=== PATIENT | female | born 1975 | race Caucasian/White ===

== ENCOUNTER 2018-04-23 10:57 | Outpatient (CLI) | payer OTHER ==
[2018-04-23 12:04] LABS: URINE SOURCE MIDSTREAM
[2018-04-23 12:16] LABS: URINE BILIRUBIN NEGATIVE (NEGATIVE); URINE BLOOD TRACE (NEGATIVE); URINE GLUCOSE (UA) NEGATIVE (NEGATIVE); URINE KETONE NEGATIVE (NEGATIVE); URINE LEUKOCYTE ESTERASE LARGE (NEGATIVE); URINE MICROSCOPIC INDICATED? YES; URINE NITRATE NEGATIVE (NEGATIVE); URINE PROTEIN NEGATIVE (NEGATIVE); URINE UROBILINOGEN 0.2 E.U./dL (0.2 - 1.0)
--- NOTE | 2018-04-23 12:21 | Diagnostic Imaging Report ---
CT scan abdomen and pelvis without intravenous contrast HISTORY: Pain Total DLP equals 467 CTDI equals 9.5 Axial sections were obtained from the xiphoid process down to the pubic symphysis. The liver exhibits a normal size and contour. No focal lesions. The spleen appears normal. No abnormalities are seen in the region of the pancreas. No significant focal renal lesions. No hydronephrosis. The exam of the pelvis demonstrates bilateral adnexal fullness with hypodensities. The findings may be associated with ovarian follicular changes. If necessary, pelvic sonography may be helpful. Evidence of a minimal amount of fluid seen in the cul-de-sac region of the pelvis. Again, the findings may be on a physiologic basis and should be correlated clinically and with the menstrual status. No bowel dilatation. IMPRESSION: 1. Bulbous shaped uterus with a somewhat irregular contour that may reflect fibroid changes. 2. Bilateral adnexal fullness with hypodensity. Changes may be associated with ovarian follicular changes. If needed, a pelvic ultrasound exam would provide additional assessment 3. Small amount of free fluid within the lower pelvis. Again, this may be on a physiologic basis and should be correlated clinically and with the menstrual status.
[2018-04-23 12:37] LABS: URINE CLARITY HAZY (CLEAR); URINE COLOR YELLOW
[2018-04-23 12:44] LABS: URINE BACTERIA MODERATE /hpf (NONE SEEN); URINE EPITHELIAL CELLS MANY /lpf (FEW)
[2018-04-25 07:12] LABS: CHLAMYDIA DNA SDA PROBETEC Negative (Negative)
== END 2018-04-23 11:55 | disposition home or self-care (01) ==
LOC: LAB 10:57 → EEVIPCON 10:57 → LAB 11:55
PROVIDERS: ATTEND Internal Medicine
DX: N76.0 Acute vaginitis (principal); R10.2 Pelvic and perineal pain
CPT/HCPCS: 36415-UA; 81001-TC; 84703-TC; 86592-TC; 86703-TC; 87086-90; 87491-90

== ENCOUNTER 2019-04-09 11:34 | Outpatient (CLI) | payer OTHER ==
[2019-04-10 07:15] LABS: HERPES SIMPLEX 1 AB IGG SEE REF. LAB REPORT; HERPES SIMPLEX 2 AB IGG SEE REF. LAB REPORT
[2019-04-10 08:10] LABS: HEP A AB IGM Negative (Negative); HEP B CORE IGM Negative (Negative); HEP B SURFACE AG QL Negative (Negative); HEP C ANTIBODY <0.1 s/co ratio (0.0-0.9)
== END 2019-04-09 12:12 | disposition home or self-care (01) ==
LOC: LAB 11:34
DX: N30.00 Acute cystitis without hematuria (principal)
CPT/HCPCS: 36415-UA; 80074-90; 86592-TC; 86695-90; 86703-TC; 87491-90